=== PATIENT | female | born 1955 | race Caucasian/White ===

== ENCOUNTER 2017-01-17 06:57 | Day surgery (SDC) | payer OTHER, BC ==
[~2017-01-17 06:57] MED LIST: Lactated Ringers 1,000 ML IV SCH; Lidocaine 1%/Sod Bicarbonate in NS 8.4% 1 ML Syringe IV PRN; Midazolam 1 MG/ML 2 ML SDV ONE; Propofol 200 MG/20 ML SDV ONE; Sodium Chloride 0.9% 10 ML Syringe FLUSH PRN; fentaNYL 100 MCG/2 ML SDV ONE
[2017-01-17] MEDS ORDERED: Bupivacaine 0.25% 30 ML SDV ONE (07:00)
[2017-01-17] MEDS ORDERED: Betamethasone Acetate/Betamethasone Sod Phosphate 30 MG/5 ML MDV ONE (07:00)
--- NOTE | 2017-01-17 07:27 | PCM.PREANE ---
Preanesthetic Assessment - Anesthesia/Transfusion/Family Hx Anesthesia History: Prior Anesthesia Without Reaction Type of Anesthesia Reaction: Excessive Nausea/Vomiting Family History of Anesthesia Reaction: No Transfusion History: Unknown Type of Transfusion Reactions: Reports: Unknown - Review of Systems General: No Symptoms Pulmonary: No Symptoms Cardiovascular: No Symptoms Gastrointestinal: No symptoms Neurological: Tingling (both hands) Other: Reports: None (obese) - Physical Assessment NPO Status Date: 01/16/17 NPO Status Time: 21:30 Pulse: 82 O2 Sat by Pulse Oximetry: 96 Respiratory Rate: 16 Blood Pressure: 132/70 Temperature: 36.9 C Height: 1.52 m Weight: 104.326 kg ASA Class: 2 Mental Status: Alert & Oriented x3 Dentition: Reports: Normal Dentition Thyro-Mental Finger Breadths: 3 Mouth Opening Finger Breadths: 3 ROM/Head Extension: Full Lungs: Clear to auscultation, Normal respiratory effort Cardiovascular: Regular Rhythm - Allergies Allergies/Adverse Reactions: Allergies Allergy/AdvReac Type Severity Reaction Status Date / Time meclofenamic acid Allergy Rash Verified 01/16/17 14:50 - Blood Blood Available: Yes - Anesthesia Plan Pre-Op Medication Ordered: None - Acknowledgements Pt an Appropriate Candidate for the Planned Anesthesia: Yes Alternatives and Risks of Anesthesia Discussed w Pt/Guardian: Yes Pt/Guardian Understands and Agrees with Anesthesia Plan: Yes PreAnesthesia Questionnaire HEENT History: Reports: Impaired vision Cardiovascular History: Reports: None Respiratory History: Reports: None 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 Musculoskeletal History: Reports: Arthritis, Other (see below) Other Musculoskeletal History: knee pain Neurological History: Reports: None Psychiatric History: Reports: None Endocrine/Metabolic History: Reports: Obesity/BMI 30+ Hematologic History: Reports: None Immunologic History: Reports: None Oncologic (Cancer) History: Reports: None Dermatologic History: Reports: Other (see below) Other Dermatologic History: atypical nevi - Past Surgical History Head Surgeries/Procedures: Reports: None GI Surgical History: Reports: Appendectomy, Cholecystectomy, Colonoscopy, Other (see below) Other GI Surgeries/Procedures: abdominal evisceration dehiscence Musculoskeletal Surgical History: Reports: Other (see below) Other Musculoskeletal Surgeries/Procedures:: bilateral knee arthroscopy, bilateral total knee replacements, multiple knee surgeries - SUBSTANCE USE Smoking Status *Q: Never Smoker Second Hand Smoke Exposure: No Days Per Week of Alcohol Use: 0 Recreational Drug Use History: No - HOME MEDS Home Medications: Home Meds Ibuprofen 600 mg PO TID PRN 01/16/17 [History] Loratadine [Claritin] 10 mg PO DAILY PRN 01/16/17 [History] - CURRENT (IN HOUSE) MEDS Current Meds: Current Medications Lactated Ringer's (Ringers, Lactated) 1,000 mls @ 125 mls/hr IV ASDIRECTED [facility] Stop: 01/17/17 23:00 Lidocaine/Sodium Bicarbonate (Buffered Lidocaine 1% In Ns 8.4%) 0.25 ml IV ONETIME PRN PRN Reason: Prior to IV Start Stop: 01/17/17 18:00 Sodium Chloride (Saline Flush) 10 ml FLUSH ASDIRECTED PRN PRN Reason: Keep Vein Open Stop: 01/17/17 18:00 Discontinued Medications Betamethasone Acet/Betameth SodPhos ([place] Soluspan 6 Mg/Ml) Confirm Administered Dose 30 mg .ROUTE .STK-MED ONE Stop: 01/17/17 07:01 Bupivacaine HCl (Marcaine 0.25%) Confirm Administered Dose 30 ml .ROUTE .STK- MED ONE Stop: 01/17/17 07:01 Fentanyl (Sublimaze) Confirm Administered Dose 100 mcg .ROUTE .STK-MED ONE Stop: 01/17/17 06:58 Midazolam HCl (Versed 1 Mg/Ml) Confirm Administered Dose 2 mg .ROUTE .STK-MED ONE Stop: 01/17/17 06:58 Propofol (Diprivan 20 Ml) Confirm Administered Dose 200 mg .ROUTE .STK-MED ONE Stop: 01/17/17 06:57
[2017-01-17] MEDS ORDERED: fentaNYL 100 MCG/2 ML SDV IVPUSH PRN (07:28)
[2017-01-17] MEDS ORDERED: Ondansetron 4 MG/2 ML SDV IVPUSH PRN (07:28)
[2017-01-17] MEDS ORDERED: Metoclopramide 10 MG/2 ML SDV IVPUSH PRN (07:28)
[2017-01-17] MEDS ORDERED: Lidocaine 0.5% 50 ML SDV ONE (08:55)
[2017-01-17] MEDS ORDERED: Ondansetron 4 MG/2 ML SDV ONE (08:55)
[2017-01-17] MEDS ORDERED: Sodium Bicarbonate 8.4% 50 MEQ/50 ML SDV ONE (08:55)
--- NOTE | 2017-01-17 09:15 | PCM48HPAN ---
Post Anesthesia Note - EVALUATION WITHIN 48HRS OF ANESTHETIC Vital Signs in Normal Range: Yes Patient Participated in Evaluation: Yes Respiratory Function Stable: Yes Airway Patent: Yes Cardiovascular Function Stable: Yes Hydration Status Stable: Yes Pain Control Satisfactory: Yes Nausea and Vomiting Control Satisfactory: Yes Mental Status Recovered: Yes
[2017-01-17] MEDS ORDERED: Ketorolac 15 MG/ML SDV IVPUSH ONE (09:39)
[2017-01-17 11:18] VITALS: BP 132/75
[2017-01-17] MEDS ORDERED: Acetaminophen/HYDROcodone 325-10 MG Tab PO ONE (11:20)
--- NOTE | 2017-02-12 13:22 | OR ---
DATE OF OPERATION: 01/17/2017 SURGEON: Les Bennett MD PREOPERATIVE DIAGNOSIS: 1. Right carpal tunnel syndrome. 2. Left carpal tunnel syndrome. POSTOPERATIVE DIAGNOSIS: 1. Right carpal tunnel syndrome. 2. Left carpal tunnel syndrome. OPERATION PERFORMED: 1. Right open carpal tunnel release (17208). 2. Left carpal tunnel injection (95003). BEHAVIOR SUPPORT SPECIALIST: fleet administrative assistant: Renea Webb ANESTHESIA: [place] block. COMPLICATIONS: None. ESTIMATED BLOOD LOSS: Minimal. INDICATIONS: Ms. Poe is a pleasant 61-year-old female with symptomatic right lateral carpal tunnel syndrome. After discussing the risks, benefits, and alternatives to both conservative as well as surgical treatment, the patient verbalized understanding and wished to proceed with surgery. DESCRIPTION OF PROCEDURE: The patient was brought to the operating room, underwent the [place] block on the right. The right upper extremity was prepped and draped in a standard orthopedic fashion. Surgical pause was performed, identifying the appropriate patient and appropriate extremity to be operated upon. Preoperative antibiotics were given. Once she was prepped and draped, we then considerably prepped the left carpal tunnel. We injected 1 mL ___ 0.25% bupivacaine in a sterile condition without complications on the carpal tunnel. Attention was then directed to the right side. I made a longitudinal incision between the thenar and hypothenar eminences. Sharp dissection was carried on through the skin and subcutaneous tissue. Hemostasis was obtained. Dissected down to a very thick hypertrophic palmaris brevis muscle. This was mobilized along the ulnar aspect. We then perforated the transverse carpal ligament with [place] blade. Once this was perforated, we then utilized the dissecting scissors and released the transverse carpal ligament proximally. At the antebrachial fascia, there was fusiform compression of the nerve identified. We then released the antebrachial fascia ulnar to the palmaris longus tendon as far as proximal. We then turned our attention distally, released the transverse carpal ligament down to the level of the superficial palmar arch. the carpal tunnel, no abnormalities were noted. She has had mild synovitis and fusiform transcarpal ligament in an antebrachial fascia. We irrigated the wound slowly. We closed the skin with 5-0 nylon. She was brought to the recovery room in satisfactory condition. MMFRANKI /[id number]
== END 2017-01-17 10:53 | disposition home or self-care (01) ==
LOC: JD.SDS 06:57
PROVIDERS: ATTEND Orthopaedic Surgery
DX: G56.03 Carpal tunnel syndrome, bilateral upper limbs (principal); M19.90 Unspecified osteoarthritis, unspecified site; E66.01 Morbid (severe) obesity due to excess calories; Z68.41 Body mass index [BMI] 40.0-44.9, adult; Z90.49 Acquired absence of other specified parts of digestive tract; Z96.653 Presence of artificial knee joint, bilateral; Z98.890 Other specified postprocedural states
CPT/HCPCS: 20526; 64721; A9270; J0702; J1885; J2250; J2405; J3010; J7120; 01810; J2704; J3490

== ENCOUNTER 2017-06-20 07:02 | Day surgery (SDC) | payer OTHER, BC ==
[~2017-06-20 07:02] MED LIST changes: -Lidocaine 1%/Sod Bicarbonate in NS 8.4% 1 ML Syringe IV PRN; +Lidocaine 1%/Sod Bicarbonate in NS 8.4% 1 ML Syringe PRN
[2017-06-20] MEDS ORDERED: Propofol 200 MG/20 ML SDV ONE (07:10)
[2017-06-20] MEDS ORDERED: fentaNYL 100 MCG/2 ML SDV ONE (07:11)
[2017-06-20] MEDS ORDERED: Midazolam 1 MG/ML 2 ML SDV ONE (07:11)
--- NOTE | 2017-06-20 07:30 | PCM.PREANE ---
Preanesthetic Assessment - Anesthesia/Transfusion/Family Hx Anesthesia History: Prior Anesthesia Without Reaction Family History of Anesthesia Reaction: No Transfusion History: Unknown Type of Transfusion Reactions: Reports: Unknown Intubation History: Unknown - Review of Systems General: No Symptoms Pulmonary: Cough Cardiovascular: No Symptoms Gastrointestinal: No Symptoms Neurological: No Symptoms Other: Reports: None - Physical Assessment NPO Status Date: 06/19/17 NPO Status Time: 21:30 Pulse: 76 O2 Sat by Pulse Oximetry: 98 Respiratory Rate: 20 Blood Pressure: 140/81 Temperature: 97.5 F Height: 1.52 m Weight: 104.326 kg ASA Class: 2 Mental Status: Alert & Oriented x3 Airway Class: Mallampati = 2 Dentition: Reports: Normal Dentition Thyro-Mental Finger Breadths: 3 Mouth Opening Finger Breadths: 3 ROM/Head Extension: Full Lungs: Clear to Auscultation, Normal Respiratory Effort Cardiovascular: Regular Rate, Regular Rhythm - Allergies Allergies/Adverse Reactions: Allergies Allergy/AdvReac Type Severity Reaction Status Date / Time meclofenamic acid Allergy Rash Verified 06/19/17 14:53 - Blood Blood Available: No - Anesthesia Plan Pre-Op Medication Ordered: None - Acknowledgements Anesthesia Type Planned: [place] Pt an Appropriate Candidate for the Planned Anesthesia: Yes Alternatives and Risks of Anesthesia Discussed w Pt/Guardian: Yes Pt/Guardian Understands and Agrees with Anesthesia Plan: Yes PreAnesthesia Questionnaire HEENT History: Reports: Impaired Vision Cardiovascular History: Reports: None Respiratory History: Reports: None Genitourinary History: Reports: None 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 Musculoskeletal History: Reports: Arthritis, Back Pain, Chronic, Other (See Below) Other Musculoskeletal History: knee pain, back pain Neurological History: Reports: None Psychiatric History: Reports: None Endocrine/Metabolic History: Reports: Obesity/BMI 30+ Hematologic History: Reports: None Immunologic History: Reports: None Oncologic (Cancer) History: Reports: None Dermatologic History: Reports: Other (See Below) Other Dermatologic History: atypical nevi - Past Surgical History Head Surgeries/Procedures: Reports: None Respiratory Surgical History: Reports: None GI Surgical History: Reports: Appendectomy, Cholecystectomy, Colonoscopy, Other (See Below) Other GI Surgeries/Procedures: abdominal evisceration dehiscence Female Surgical History: Reports: None Male Surgical History: Reports: None Endocrine Surgical History: Reports: None Neurological Surgical History: Reports: None Musculoskeletal Surgical History: Reports: Other (See Below) Other Musculoskeletal Surgeries/Procedures:: bilateral knee arthroscopy, bilateral total knee replacements, multiple knee surgeries Oncologic Surgical History: Reports: None - SUBSTANCE USE Smoking Status *Q: Never Smoker Second Hand Smoke Exposure: No Days Per Week of Alcohol Use: 0 Recreational Drug Use History: No - HOME MEDS Home Medications: Home Meds Ibuprofen 600 mg PO TID PRN 01/16/17 [History] - CURRENT (IN HOUSE) MEDS Current Meds: Current Medications Lactated Ringer's (Ringers, Lactated) 1,000 mls @ 125 mls/hr IV ASDIRECTED [facility] Stop: 06/20/17 23:00 Lidocaine/Sodium Bicarbonate (Buffered Lidocaine 1% In Ns 8.4%) 0.25 ml .XX ONETIME PRN PRN Reason: Prior to IV Start Stop: 06/20/17 18:00 Sodium Chloride (Saline Flush) 10 ml FLUSH ASDIRECTED PRN PRN Reason: Keep Vein Open Stop: 06/20/17 18:00 Discontinued Medications Fentanyl (Sublimaze) Confirm Administered Dose 100 mcg .ROUTE .STK-MED ONE Stop: 06/20/17 06:59 Fentanyl (Sublimaze) Confirm Administered Dose 100 mcg .ROUTE .STK-MED ONE Stop: 06/20/17 07:12 Midazolam HCl (Versed 1 Mg/Ml) Confirm Administered Dose 2 mg .ROUTE .STK-MED ONE Stop: 06/20/17 06:59 Midazolam HCl (Versed 1 Mg/Ml) Confirm Administered Dose 2 mg .ROUTE .STK-MED ONE Stop: 06/20/17 07:12 Propofol (Diprivan 20 Ml) Confirm Administered Dose 200 mg .ROUTE .STK-MED ONE Stop: 06/20/17 06:59 Propofol (Diprivan 20 Ml) Confirm Administered Dose 200 mg .ROUTE .STK-MED ONE Stop: 06/20/17 07:11
[2017-06-20] MEDS ORDERED: Bupivacaine 0.25% 10 ML SDV ONE (07:39)
[2017-06-20] MEDS ORDERED: ceFAZolin 1 GM Vial ONE ×2 (08:25→08:59)
[2017-06-20] MEDS ORDERED: Ketorolac 15 MG/ML SDV IVPUSH ONE (09:30)
[2017-06-20] MEDS ORDERED: Acetaminophen/HYDROcodone 325-5 MG Tab PO ONE (09:40)
[2017-06-20 10:58] VITALS: BP 117/58
--- NOTE | 2017-06-21 07:40 | OR ---
DATE OF OPERATION: 06/21/2017 SURGEON: Les Bennett MD PREOPERATIVE DIAGNOSIS: Left carpal tunnel syndrome, G56.02. POSTOPERATIVE DIAGNOSIS: Left carpal tunnel syndrome, G56.02. OPERATION PERFORMED: Left open carpal tunnel release (19505). SAFETY ADMINISTRATOR: assistant activities director: Vernon Mendoza. ANESTHESIA: [place] blockade. COMPLICATIONS: None. ESTIMATED BLOOD LOSS: Minimal. INDICATIONS: Ms. Poe is a pleasant 61-year-old female with symptomatic left carpal tunnel syndrome. After discussing the risks, benefits, and alternatives of both conservative as well as surgical treatment, the patient verbalized understanding and wished to proceed with surgery. DESCRIPTION OF PROCEDURE: The patient was brought to the operating room, underwent a [place] blockade. The left upper extremity was prepped and draped in a standard orthopedic fashion. Surgical pause was performed, identifying the appropriate patient and appropriate extremity to be operated upon. Preoperative antibiotics were given. I made a longitudinal incision between the thenar and hypothenar eminences. Sharp dissection was carried on through the skin and subcutaneous tissue. Hemostasis was obtained. I dissected down and incised the palmar fascia fibers. I dissected down to the transverse carpal ligament. Utilizing a [place] blade, we released the transverse carpal ligament along the border. I then utilized a [place] elevator and mobilized the soft tissues anterior to antebrachial fascia and released the fascia 2-3 cm proximal to the junction of the antebrachial fascia of the transverse carpal ligament. We then turned our attention distally. We released the transverse carpal ligament down to the superficial palmar arch. She has significant amount of synovitis actually in the carpal tunnel. I did a small partial synovectomy of the flexor tendons as this was emanating out from the released area. I irrigated the wound thoroughly. I closed the skin with a 5-0 nylon. She was placed in a soft dressing and brought to the recovery in satisfactory condition. MMODAL /[id number]
== END 2017-06-20 10:50 | disposition home or self-care (01) ==
LOC: JD.SDS 07:02
PROVIDERS: ATTEND Orthopaedic Surgery
DX: G56.02 Carpal tunnel syndrome, left upper limb (principal); E66.01 Morbid (severe) obesity due to excess calories; M17.0 Bilateral primary osteoarthritis of knee; Z88.6 Allergy status to analgesic agent; Z90.49 Acquired absence of other specified parts of digestive tract; Z98.890 Other specified postprocedural states; Z68.42 Body mass index [BMI] 45.0-49.9, adult
CPT/HCPCS: 64721; A9270; J0690; J2250; J3010; J7120; 01810; J2704

== ENCOUNTER 2017-08-05 08:11 | Day surgery (SDC) | payer BC, OTHER ==
[~2017-08-05 08:11] MED LIST changes: -Midazolam 1 MG/ML 2 ML SDV ONE; -Propofol 200 MG/20 ML SDV ONE; -fentaNYL 100 MCG/2 ML SDV ONE
--- NOTE | 2017-08-05 08:40 | PCM.PREANE ---
Preanesthetic Assessment - Anesthesia/Transfusion/Family Hx Anesthesia History: Prior Anesthesia Reaction Type of Anesthesia Reaction: Excessive Nausea/Vomiting Family History of Anesthesia Reaction: No Transfusion History: No Prior Transfusion(s) Intubation History: Unknown - Review of Systems General: No Symptoms Pulmonary: No Symptoms Cardiovascular: No Symptoms Gastrointestinal: No Symptoms Neurological: No Symptoms (history of back pain), Tingling (recent CTR with little fingers still tingly) Other: Reports: Easy Bruising - Physical Assessment NPO Status Date: 08/04/17 NPO Status Time: 23:00 Pulse: 79 O2 Sat by Pulse Oximetry: 97 Respiratory Rate: 20 Blood Pressure: 130/75 Temperature: 36.7 C Height: 1.52 m Weight: 105 kg ASA Class: 2 Mental Status: Alert & Oriented x3 Airway Class: Mallampati = 2 Dentition: Reports: Normal Dentition, [place] Thyro-Mental Finger Breadths: 3 Mouth Opening Finger Breadths: 3 ROM/Head Extension: Full Lungs: Clear to Auscultation, Normal Respiratory Effort Cardiovascular: Regular Rate, Regular Rhythm, No Murmurs - Imaging/EKG Impressions: EKG: NSR, consider anterior infarct, no acute changes 2009 Stress Test: 2009 EF: 64% Cardiac consult done at this time with no previous [facility] suspected. - Allergies Allergies/Adverse Reactions: Allergies Allergy/AdvReac Type Severity Reaction Status Date / Time meclofenamic acid Allergy Rash Verified 08/02/17 11:29 - Anesthesia Plan Pre-Op Medication Ordered: None - Acknowledgements Anesthesia Type Planned: MAC Pt an Appropriate Candidate for the Planned Anesthesia: Yes Alternatives and Risks of Anesthesia Discussed w Pt/Guardian: Yes Pt/Guardian Understands and Agrees with Anesthesia Plan: Yes PreAnesthesia Questionnaire HEENT History: Reports: Impaired Vision Cardiovascular History: Reports: None Respiratory History: Reports: None Genitourinary History: Reports: None 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 Musculoskeletal History: Reports: Arthritis, Back Pain, Chronic, Other (See Below) Other Musculoskeletal History: knee pain, back pain Neurological History: Reports: None Psychiatric History: Reports: None Endocrine/Metabolic History: Reports: Obesity/BMI 30+ Hematologic History: Reports: None Immunologic History: Reports: None Oncologic (Cancer) History: Reports: None Dermatologic History: Reports: Other (See Below) Other Dermatologic History: atypical nevi - Past Surgical History Head Surgeries/Procedures: Reports: None Cardiovascular Surgical History: Reports: None Respiratory Surgical History: Reports: None GI Surgical History: Reports: Appendectomy, Cholecystectomy, Colonoscopy, Other (See Below) Other GI Surgeries/Procedures: abdominal evisceration dehiscence Female Surgical History: Reports: None Male Surgical History: Reports: None Endocrine Surgical History: Reports: None Neurological Surgical History: Reports: None Musculoskeletal Surgical History: Reports: Other (See Below) Other Musculoskeletal Surgeries/Procedures:: bilateral knee arthroscopy, bilateral total knee replacements, multiple knee surgeries Oncologic Surgical History: Reports: None - SUBSTANCE USE Smoking Status *Q: Never Smoker Second Hand Smoke Exposure: No Days Per Week of Alcohol Use: 0 Recreational Drug Use History: No - HOME MEDS Home Medications: Home Meds Ibuprofen 600 mg PO TID PRN 01/16/17 [History] - CURRENT (IN HOUSE) MEDS Current Meds: Current Medications Lactated Ringer's (Ringers, Lactated) 1,000 mls @ 125 mls/hr IV ASDIRECTED [place] Stop: 08/05/17 23:00 Lidocaine/Sodium Bicarbonate (Buffered Lidocaine 1% In Ns 8.4%) 0.25 ml .XX ONETIME PRN PRN Reason: Prior to IV Start Stop: 08/05/17 18:00 Sodium Chloride (Saline Flush) 10 ml FLUSH ASDIRECTED PRN PRN Reason: Keep Vein Open Stop: 08/05/17 18:00
[2017-08-05] MEDS ORDERED: Propofol 200 MG/20 ML SDV ONE (09:19)
--- NOTE | 2017-08-05 10:02 | PCM.OPNOTE ---
- General Post-Op/Procedure Note Date of Surgery/Procedure: 08/05/17 Operative Procedure(s): colonoscopy to cecum Pre Op Diagnosis: screening colonosocopy Post-Op Diagnosis: Same Anesthesia Technique: MAC Primary Surgeon: Renan Grigsby EBL in mLs: 0 Complications: None Condition: Good
--- NOTE | 2017-08-05 10:02 | PCM48HPAN ---
Post Anesthesia Note - EVALUATION WITHIN 48HRS OF ANESTHETIC Vital Signs in Normal Range: Yes Patient Participated in Evaluation: Yes Respiratory Function Stable: Yes Airway Patent: Yes Cardiovascular Function Stable: Yes Hydration Status Stable: Yes Pain Control Satisfactory: Yes Nausea and Vomiting Control Satisfactory: Yes Mental Status Recovered: Yes - COMMENTS/OBSERVATIONS Free Text/Narrative:: rests quietly, no c/0 VSS
[2017-08-05 11:04] VITALS: BP 121/72
--- NOTE | 2017-08-06 06:53 | OR ---
DATE OF OPERATION: 08/05/2017 SURGEON: Renan Grigsby MD PREOPERATIVE DIAGNOSIS: Family history of colon cancer. POSTOPERATIVE DIAGNOSIS: Family history of colon cancer. OPERATION PERFORMED: Colonoscopy to cecum. FINDINGS: Normal study. RECOMMENDATION: Repeat colonoscopy in 5 years. ANESTHESIA: Procedure done under IV sedation. DESCRIPTION OF PROCEDURE: The patient was taken to the endoscopy room, connected to monitoring equipment, given IV sedation, and placed in left lateral position. Perianal area was inspected and was normal. Rectal exam showed good sphincter tone. A video Olympus colonoscope was introduced into the rectum and threaded up without problem to the cecum. Cecal anatomy showing the appendicular orifice and ileocecal valve were clearly seen. Prep was excellent throughout the colon. [place] cleansing score grade A. The scope was slowly withdrawn showing the cecum, ascending colon, transverse colon, descending colon, sigmoid colon, and rectum. The patient tolerated the procedure and was sent to recovery room in a stable condition. She will be followed up as needed in the clinic. ESTIMATED BLOOD LOSS: MMODAL /[id number]
== END 2017-08-05 10:50 | disposition home or self-care (01) ==
LOC: JD.SDS 08:11
PROVIDERS: ATTEND Surgery
DX: Z12.11 Encounter for screening for malignant neoplasm of colon (principal); E66.01 Morbid (severe) obesity due to excess calories; Z80.0 Family history of malignant neoplasm of digestive organs; Z88.8 Allergy status to other drugs, medicaments and biological substances; Z90.49 Acquired absence of other specified parts of digestive tract; Z98.890 Other specified postprocedural states; Z68.42 Body mass index [BMI] 45.0-49.9, adult
CPT/HCPCS: 45378; J7120; 00810; J2704

== ENCOUNTER 2017-12-05 06:16 | Day surgery (SDC) | payer BC, OTHER ==
[~2017-12-05 06:16] MED LIST changes: +Lidocaine 1%/Sod Bicarbonate in NS 8.4% 1 ML Syringe IDERM PRN; -Lidocaine 1%/Sod Bicarbonate in NS 8.4% 1 ML Syringe PRN
[2017-12-05] MEDS ORDERED: fentaNYL 100 MCG/2 ML SDV ONE (06:45)
[2017-12-05] MEDS ORDERED: Propofol 200 MG/20 ML SDV ONE ×2 (06:45→07:36)
[2017-12-05] MEDS ORDERED: Lidocaine 1% 4 ML ONE (06:46)
[2017-12-05] MEDS ORDERED: Midazolam 1 MG/ML 2 ML SDV ONE (06:46)
--- NOTE | 2017-12-05 06:56 | PCM.PREANE ---
Preanesthetic Assessment - Anesthesia/Transfusion/Family Hx Anesthesia History: Prior Anesthesia Reaction (nausea) Family History of Anesthesia Reaction: No Transfusion History: No Prior Transfusion(s) Type of Transfusion Reactions: Reports: Unknown Intubation History: Unknown - Review of Systems General: No Symptoms Pulmonary: No Symptoms Cardiovascular: No Symptoms Gastrointestinal: No Symptoms Neurological: Numbness (little fingers at times) Other: Reports: None - Physical Assessment NPO Status Date: 12/04/17 NPO Status Time: 00:00 Pulse: 84 O2 Sat by Pulse Oximetry: 100 Respiratory Rate: 16 Blood Pressure: 148/82 Temperature: 36.7 C Height: 1.55 m Weight: 105.2 kg ASA Class: 2 Mental Status: Alert & Oriented x3 Dentition: Reports: Normal Dentition, Koppel(s) Thyro-Mental Finger Breadths: 3 Mouth Opening Finger Breadths: 3 ROM/Head Extension: Full Lungs: Clear to Auscultation, Normal Respiratory Effort Cardiovascular: Regular Rate, Regular Rhythm, No Murmurs - Lab Values: Laboratory Last Values MRSA (PCR) Negative 11/06/17 15:40 - Allergies Allergies/Adverse Reactions: Allergies Allergy/AdvReac Type Severity Reaction Status Date / Time meclofenamic acid Allergy Rash Verified 12/04/17 16:42 - Blood Blood Available: No Product(s) Available: None - Anesthesia Plan Pre-Op Medication Ordered: None - Acknowledgements Anesthesia Type Planned: MAC Pt an Appropriate Candidate for the Planned Anesthesia: Yes Alternatives and Risks of Anesthesia Discussed w Pt/Guardian: Yes Pt/Guardian Understands and Agrees with Anesthesia Plan: Yes PreAnesthesia Questionnaire HEENT History: Reports: Impaired Vision, Other (See Below) Other HEENT History: wears glasses Cardiovascular History: Reports: None Respiratory History: Reports: None Gastrointestinal History: Reports: None Genitourinary History: Reports: None 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 Musculoskeletal History: Reports: Arthritis, Back Pain, Chronic Other Musculoskeletal History: knee pain, back pain Neurological History: Reports: None Psychiatric History: Reports: None Endocrine/Metabolic History: Reports: Obesity/BMI 30+ Hematologic History: Reports: None Immunologic History: Reports: None Oncologic (Cancer) History: Reports: None Dermatologic History: Reports: Other (See Below) Other Dermatologic History: atypical nevi - Past Surgical History Head Surgeries/Procedures: Reports: None Cardiovascular Surgical History: Reports: None Respiratory Surgical History: Reports: None GI Surgical History: Reports: None Female Surgical History: Reports: None Male Surgical History: Reports: None Endocrine Surgical History: Reports: None Neurological Surgical History: Reports: None Musculoskeletal Surgical History: Reports: Carpal Tunnel, Knee Replacement Oncologic Surgical History: Reports: None Dermatological Surgical History: Reports: None - SUBSTANCE USE Smoking Status *Q: Never Smoker Second Hand Smoke Exposure: No Days Per Week of Alcohol Use: 0 Number of Drinks Per Day: 0 Total Drinks Per Week: 0 Recreational Drug Use History: No - HOME MEDS Home Medications: Home Meds Ibuprofen 600 mg PO TID PRN 01/16/17 [History] traMADol HCl [Ultram] 50 - 100 mg PO Q6H PRN #12 tablet 12/05/17 [Rx] - CURRENT (IN HOUSE) MEDS Current Meds: Current Medications Lactated Ringer's (Ringers, Lactated) 1,000 mls @ 125 mls/hr IV ASDIRECTED [facility] Stop: 12/05/17 23:00 Lidocaine/Sodium Bicarbonate (Buffered Lidocaine 1% In Ns 8.4%) 0.25 ml IDERM ONETIME PRN PRN Reason: Prior to IV Start Stop: 12/05/17 18:00 Sodium Chloride (Saline Flush) 10 ml FLUSH ASDIRECTED PRN PRN Reason: Keep Vein Open Stop: 12/05/17 18:00 Discontinued Medications Fentanyl (Sublimaze) Confirm Administered Dose 100 mcg .ROUTE .STK-MED ONE Stop: 12/05/17 06:46 Lactated Ringer's (Ringers, Lactated) 1,000 mls @ 125 mls/hr IV ASDIRECTED [facility] Stop: 11/14/17 23:00 Lidocaine HCl (Xylocaine-Mpf 1%) Confirm Administered Dose 4 mls @ as directed .ROUTE .STK-MED ONE Stop: 12/05/17 06:47 Lidocaine/Sodium Bicarbonate (Buffered Lidocaine 1% In Ns 8.4%) 0.25 ml IDERM ONETIME PRN PRN Reason: Prior to IV Start Stop: 11/14/17 18:00 Midazolam HCl (Versed 1 Mg/Ml) Confirm Administered Dose 2 mg .ROUTE .STK-MED ONE Stop: 12/05/17 06:47 Propofol (Diprivan 20 Ml) Confirm Administered Dose 200 mg .ROUTE .STK-MED ONE Stop: 12/05/17 06:46 Sodium Chloride (Saline Flush) 10 ml FLUSH ASDIRECTED PRN PRN Reason: Keep Vein Open Stop: 11/14/17 18:00
[2017-12-05] MEDS: Scopolamine 1.5 MG Transdermal Patch TOP ONE (07:00)
[2017-12-05] MEDS ORDERED: ceFAZolin 1 GM Vial ONE (07:18)
[2017-12-05] MEDS ORDERED: Ondansetron 4 MG/2 ML SDV ONE (07:31)
[2017-12-05] MEDS ORDERED: Dexamethasone 4 MG/ML SDV ONE (07:32)
[2017-12-05] MEDS: Lidocaine 1%/Sod Bicarbonate in NS 8.4% 1 ML Syringe IDERM PRN (07:43)
[2017-12-05] MEDS: Lactated Ringers 1,000 ML IV SCH (07:43)
--- NOTE | 2017-12-05 07:48 | PCM48HPAN ---
Post Anesthesia Note - EVALUATION WITHIN 48HRS OF ANESTHETIC Vital Signs in Normal Range: Yes Patient Participated in Evaluation: Yes Respiratory Function Stable: Yes Airway Patent: Yes Cardiovascular Function Stable: Yes Hydration Status Stable: Yes Pain Control Satisfactory: Yes Nausea and Vomiting Control Satisfactory: Yes Mental Status Recovered: Yes Pulse Rate: 84 SaO2: 92 Resp Rate: 16 Temperature: 36.7 C Blood Pressure: 148/82 - COMMENTS/OBSERVATIONS Free Text/Narrative:: no anesthesia complications noted
[2017-12-05 08:23] VITALS: BP 150/72
[2017-12-05] MEDS: Bupivacaine 0.25% 30 ML SDV ONE (09:19)
[2017-12-05] MEDS: Lidocaine 1% 30 ML SDV ONE (09:20)
--- NOTE | 2017-12-11 14:00 | PCM.OPNOTE ---
- General Post-Op/Procedure Note Date of Surgery/Procedure: 12/05/17 Operative Procedure(s): right thumb a1 zoila release Pre Op Diagnosis: right thumb stenosing tenosynovitis Post-Op Diagnosis: Same Anesthesia Technique: Local, MAC Primary Surgeon: Fredrick Carlson Anesthesia Provider: Gilson Rodarte Print Shop Manager: Anna Dc EBL in mLs: 5 Complications: None Condition: Good
--- NOTE | 2017-12-11 14:25 | OR ---
DATE OF OPERATION: 12/05/2017 SURGEON: Fredrick Carlson MD OPERATION PERFORMED: Right thumb A1 zoila release. PREOPERATIVE DIAGNOSIS: Right thumb stenosing tenosynovitis. POSTOPERATIVE DIAGNOSIS: Right thumb stenosing tenosynovitis. ANESTHESIA: Local MAC. ANESTHESIA PROVIDER: Gilson Rodarte CRNA. ESTIMATED BLOOD LOSS: Less than 5 mL. COMPLICATIONS: None. CONDITION: Stable. DESCRIPTION OF PROCEDURE: The patient was identified in the preoperative holding area. Proper site was marked and identified by the surgeon. The patient was taken back to the operating theater where after adequate anesthesia, the patient's right upper extremity was sterilely prepped and draped in the usual sterile fashion. OR time-out was performed. The patient received 2 g of IV Ancef. The right upper extremity was then exsanguinated with the use of an Esmarch on the forearm as a tourniquet; 1% lidocaine without epinephrine and 0.25% Marcaine without epinephrine were then used to anesthetize the skin over the A1 zoila. Incision was then made. Blunt dissection was taken down to the A1 zoila. Ragnell retractors were placed radially and ulnarly to protect the neurovascular bundles. Marquette blade was then used to incise the A1 zoila. Tenotomy scissors was then used to release both proximally and distally making sure not to get into the A2 zoila. At this time, it was found to be adequately released. The tendon was brought through the wound bed and was found to show no signs of need for tenolysis. At this time, adequate saline was irrigated through the wound; 4- 0 nylon simple suture was used for closure of the skin. The patient had a sterile soft dressing applied and was sent to PACU in stable condition. MMODAL /[id number]
== END 2017-12-05 08:50 | disposition home or self-care (01) ==
LOC: JD.SDS 06:16
PROVIDERS: ATTEND Orthopaedic Surgery
DX: M65.841 Other synovitis and tenosynovitis, right hand (principal); E66.01 Morbid (severe) obesity due to excess calories; Z88.8 Allergy status to other drugs, medicaments and biological substances; Z79.899 Other long term (current) drug therapy; Z68.41 Body mass index [BMI] 40.0-44.9, adult
CPT/HCPCS: 26055; 87641; A9270; J0690; J1100; J2250; J2405; J3490; J7120; 01810; J2704; J3010

== ENCOUNTER 2018-01-15 20:28 | Emergency (ER) | payer BC ==
[2018-01-15 20:37] VITALS: BP 153/73
--- NOTE | 2018-01-15 21:35 | EDM.PDOC ---
ED HPI GENERAL MEDICAL PROBLEM - General Chief Complaint: Chest Pain Stated Complaint: COUGHING THEN HAS SOME CHEST PAIN Time Seen by Provider: 01/15/18 20:53 Source of Information: Reports: Patient History Limitations: Reports: No Limitations - History of Present Illness INITIAL COMMENTS - FREE TEXT/NARRATIVE: The patient states that she took while eating Saturday night, 01/13/2018, and may have aspirated some food particles. She states that she coughed severely for about 30 minutes, and since then, has had a burning sensation in her right chest , achiness to the right side of her chest, and a persistent cough. Her right- sided chest achiness is made worse with singultus, coughing, and deep breaths. No prior similar symptoms. No recent fever. Here in the ED, the patient is found to be afebrile, saturating 96% on room air (normal for her age). The patient's PCP is Dr. Babcock. Chest Pain Score (Numeric/FACES): 6 - Related Data Allergies Allergy/AdvReac Type Severity Reaction Status Date / Time meclofenamic acid Allergy Rash Verified 01/15/18 20:32 Home Meds: Home Meds . [No Known Home Meds] 01/15/18 [History] Past Medical History HEENT History: Reports: Allergic Rhinitis, Impaired Vision Other HEENT History: wears glasses Musculoskeletal History: Reports: Back Pain, Chronic, Osteoarthritis Endocrine/Metabolic History: Reports: Obesity/BMI 30+ - Past Surgical History GI Surgical History: Reports: Appendectomy, Cholecystectomy Musculoskeletal Surgical History: Reports: Carpal Tunnel (bilateral), Knee Replacement (bilateral), Other (See Below) (Right thumb trigger finger release) Social & Family History - Tobacco Use Smoking Status *Q: Never Smoker Second Hand Smoke Exposure: No - Caffeine Use Caffeine Use: Reports: Coffee - Alcohol Use Alcohol Use History: Yes Alcohol Use Frequency: Socially - Recreational Drug Use Recreational Drug Use: No - Living Situation & Occupation Living situation: Reports: , with Spouse Occupation: Employed ([employer]) ED ROS GENERAL - Review of Systems Review Of Systems: ROS reveals no pertinent complaints other than HPI. ED EXAM, GENERAL - Physical Exam Exam: See Below Exam Limited By: No Limitations General Appearance: Alert, WD/WN, No Apparent Distress Eye Exam: Bilateral Eye: Normal Inspection Ears: Normal External Exam, Normal Canal, Hearing Grossly Normal, Normal TMs Nose: Normal Inspection, Normal Mucosa, No Blood Throat/Mouth: Normal Inspection, Normal Lips, Normal Teeth, Normal Gums, Normal Oropharynx, Normal Voice, No Airway Compromise Head: Atraumatic, Normocephalic Neck: Normal Inspection, Supple, Non-Tender, Full Range of Motion. No: Lymphadenopathy (L), Lymphadenopathy (R) Respiratory/Chest: No Respiratory Distress, Lungs Clear, Normal Breath Sounds, No Accessory Muscle Use. No: Crackles, Rhonchi, Wheezing Cardiovascular: Normal Peripheral Pulses, Regular Rate, Rhythm, No Gallop, No JVD, No Murmur, No Rub Peripheral Pulses: 4+: Radial (L), Radial (R) GI/Abdominal: Normal Bowel Sounds, Soft, Non-Tender, No Organomegaly, No Distention, No Abnormal Bruit, No Mass, Other (Obese) (Female) Exam: Deferred Rectal (Female) Exam: Deferred Back Exam: Normal Inspection, Full Range of Motion, NT Extremities: Normal Inspection, Normal Range of Motion, No Pedal Edema, Normal Capillary Refill Neurological: Alert, Oriented, Normal Cognition, No Motor/Sensory Deficits Psychiatric: Normal Affect Skin Exam: Warm, Dry, Intact, Normal Color, No Rash Course - Vital Signs Last Recorded V/S: Last Vital Signs Temp 36.4 C 01/15/18 20:32 Pulse 98 01/15/18 20:32 Resp 18 01/15/18 20:32 BP 153/73 H 01/15/18 20:32 Pulse Ox 96 01/15/18 20:32 - Orders/Labs/Meds Orders: Active Orders 24 hr Category Date Time Status Chest 2V [CR] Stat Exams 01/15/18 21:02 Taken - Re-Assessments/Exams Free Text/Narrative Re-Assessment/Exam: 01/15/18 21:35 2-view chest radiograph appears to be grossly normal. Cardiac silhouette is within normal limits. No pulmonary vascular congestion. No pleural effusions. No focal infiltrate. No pneumothorax. Formal read per the Radiologist pending. 01/15/18 21:51 Chest X-ray results discussed with the patient. I suspect that the patient may have aspirated either some saliva or small food particles, causing irritation of her large bronchi, leading to her cough. I do not see any atelectasis, suggesting bronchial obstruction. Unfortunately, coughs due to bronchial irritation or foreign bodies are not alleviated with [id number] cough remedies or even opioids. Unfortunately, there are no medicines to treat the patient's cough. The patient's generalized chest pain appears to be due to coughing itself, with the use of intercostal muscles. Again, no specific treatments, other than ibuprofen. Departure - Departure Time of Disposition: 21:53 Disposition: Home, Self-Care 01 Condition: Fair Clinical Impression: Aspiration into respiratory tract, Cough - Discharge Information Instructions: Cough, Adult, [id number], Aspiration Precautions, Adult Referrals: Dagmar Brewster MD [Primary Care Provider] - Forms: ED Department Discharge Additional Instructions: You were seen in the emergency room for persistent cough and generalized chest pain after choking on some food Saturday. Workup in the ER included a chest x-ray, which was normal. There is no evidence of a foreign body blocking an airway. The cause of your cough is MOST LIKELY due to irritation of your airways due to aspiration of saliva or small food particles. Unfortunately, there are no medicines to treat this type of cough - it will have to run its course. Your generalized chest pain is MOST LIKELY due to discomfort of intercostal muscles - muscles that you rarely use, but do use when you cough. We recommend that you take [id number] ibuprofen as needed for chest discomfort. If your symptoms persist into next week, you may need bronchoscopy - a camera down into the tubes that lead into your lungs. Follow-up with your PCP, Dr. Babcock, to make such arrangements. If any other problems, please do not hesitate to return to the ER. - My Orders Last 24 Hours: My Active Orders 01/15/18 21:02 Chest 2V [CR] Stat - Assessment/Plan Last 24 Hours: My Active Orders 01/15/18 21:02 Chest 2V [CR] Stat
--- NOTE | 2018-01-16 07:08 | CR ---
Chest: Two views of the chest were obtained. Comparison: No prior chest x-ray. Heart size and mediastinum are within normal limits. Linear scar or discoid atelectasis is noted within the right middle lobe. Lungs otherwise are clear. Bony structures are within normal limits for the patient's age. Surgical clips are seen from prior cholecystectomy. Impression: 1. Incidental findings. Nothing acute is seen. Diagnostic code #2
== END 2018-01-15 22:05 | disposition home or self-care (01) ==
LOC: JD.ED 20:28
DX: T17.920A Food in respiratory tract, part unspecified causing asphyxiation, initial encounter (principal); E66.9 Obesity, unspecified; Z88.8 Allergy status to other drugs, medicaments and biological substances
CPT/HCPCS: 71046; 71046-26; 99283

== ENCOUNTER 2023-08-29 08:19 | Day surgery (SDC) | payer MEDICARE, OTHER ==
[~2023-08-29 08:19] MED LIST changes: -Lidocaine 1%/Sod Bicarbonate in NS 8.4% 1 ML Syringe IDERM PRN; +Sodium Chloride 0.9% 10 ML Syringe FLUSH SCH
[2023-08-29] MEDS ORDERED: Lidocaine 1% 4 ML ONE (09:19)
[2023-08-29] MEDS ORDERED: Propofol 200 MG/20 ML SDV ONE (09:19)
[2023-08-29 12:44] VITALS: BP 129/68; PULSE 74
== END 2023-08-29 11:00 | disposition home or self-care (01) ==
LOC: JD.SDS 08:19
PROVIDERS: ATTEND Family Medicine
DX: Z12.11 Encounter for screening for malignant neoplasm of colon (principal); E75.5 Other lipid storage disorders; E66.01 Morbid (severe) obesity due to excess calories; Z68.42 Body mass index [BMI] 45.0-49.9, adult
CPT/HCPCS: 45380; J2704; J7120; J3490